=== PATIENT | female | born 1990 | race Two or more races ===

== ENCOUNTER 2019-07-26 08:35 | Emergency (ER) | payer OTHER ==
[2019-07-26 09:02] VITALS: BMI 27.4
--- NOTE | 2019-07-26 09:44 | PDOC ---
History of Present Illness - General Chief Complaint: Chest Pain Stated Complaint: CHEST PAIN,EAR PAIN Time Seen by Provider: 07/26/19 09:08 History Source: Patient Exam Limitations: No Limitations - History of Present Illness Initial Comments: 07/26/19 09:39 Pt is a 29 y/o female who presents to the ED with complaint of cough, fever and chest wall pain secondary to severe cough for the last 3 days. She states she initially had pain in her chest only with coughing but now the pain is constant and very tender to touch. She admits that her son has strep throat and is on antibiotics. She denies any arm pain, neck pain, jaw pain, radiating pain to her back. She denies any shortness of breath. She states her ears have been hurting her and she has a lot of congestion. She has not been taking anything for her symptoms. She has a history of anemia and denies any asthma history. The patient states that she is 19 wks gestation and is also having morning sickness which is not new since being sick. She denies any abdominal pain or vaginal bleeding. 07/26/19 10:37 Is this a multiple visit Asthma Patient?: No Past History - Past Medical History Allergies/Adverse Reactions: Allergies Allergy/AdvReac Type Severity Reaction Status Date / Time No Known Allergies Allergy Verified 07/26/19 08:47 Home Medications: Ambulatory Orders Acetaminophen [Tylenol] 650 mg PO DAILY PRN 07/26/19 Vit 93/Iron Fum/Folic [ Formula Tablet] 1 each PO DAILY Anemia: Yes CVA: No COPD: No CHF: No DVT: No - Reproductive History (#): 3 Para: 1 Cervical CA: No Dysfunctional Uterine Bleeding: No Ectopic : No Endometrial CA: No Polycystic Ovaries: No Therapeutic (s) & number: No Tubal Ligation: No Spontaneous : 1 - Immunization History Immunization Up to Date: Yes - Psycho Social/Smoking Cessation Hx Smoking History: Never smoked Hx Alcohol Use: No Drug/Substance Use Hx: No Review of Systems - Review of Systems Constitutional: Yes: Fever. No: Loss of Appetite, Night Sweats HEENTM: Yes: Ear Pain (b/l ), Throat Pain. No: Nose Congestion, Difficulty Swallowing Respiratory: Yes: Cough. No: Shortness of Breath, Wheezing Cardiac (ROS): Yes: Chest Pain (chest wall). No: Palpitations, Syncope, Chest Tightness ABD/GI: No: Diarrhea, Nausea, Vomiting, Abdominal cramping Musculoskeletal: Yes: Muscle Pain. No: Joint Pain, Muscle Weakness Integumentary: No: Rash Neurological: No: Headache *Physical Exam - Vital Signs Last Vital Signs Temp Pulse Resp BP Pulse Ox 98.5 F 91 H 17 106/67 97 07/26/19 08:44 07/26/19 08:44 07/26/19 08:44 07/26/19 08:44 07/26/19 09:30 - Physical Exam General Appearance: Yes: Nourished, Appropriately Dressed, Mild Distress HEENT: positive: EOMI, LINDY, Normal Voice, Pharynx Normal, Nasal Congestion, Hearing Grossly Normal, TM Bulging (b/l TM effusions without evidence of infection). negative: Muffled/Hoarse voice, Pharyngeal Erythema, Tonsillar Exudate, Tonsillar Erythema, Rhinorrhea, Sinus Tenderness, Hearing Decreased, TM Dull, TM Erythema Neck: positive: Supple. negative: Tender, Rigid, Decreased range of motion, Lymphadenopathy (R), Lymphadenopathy (L) Respiratory/Chest: positive: Chest Tender, Lungs Clear, Normal Breath Sounds, Other (Moderate anterior chest wall tenderness to palpation). negative: Respiratory Distress, Accessory Muscle Use, Crackles, Rhonchi, Wheezing Cardiovascular: positive: Regular Rhythm, Regular Rate, S1, S2 Gastrointestinal/Abdominal: positive: Normal Bowel Sounds, Soft. negative: Tender Musculoskeletal: positive: Normal Inspection Extremity: positive: Normal Capillary Refill Neurologic: positive: Fully Oriented, Alert, Normal Mood/Affect ED Treatment Course - RADIOLOGY Radiology Studies Ordered: Category Date Time Status CHEST PA & LAT [RAD] Stat Radiology 07/26/19 09:36 Ordered Medical Decision Making - Medical Decision Making 07/26/19 10:27 The patient has been made aware that her results of her rapid strep swab and her influenza swab were negative. The throat culture is still pending. The patient has been encouraged to increase her fluid in take and get plenty of rest. She should follow up with her primary doctor within 2 days for repeat evaluation. She should take Tylenol only for fever or bodyaches. She has been encouraged to return to the ED for any worsening symptoms. She understands and agrees with treatment and plan. Discharge - Discharge Information Problems reviewed: Yes Clinical Impression/Diagnosis: Cough in adult, Chest wall pain Upper respiratory infection Qualifiers: URI type: unspecified viral URI Qualified Code(s): J06.9 - Acute upper respiratory infection, unspecified Acute middle ear effusion Qualifiers: Laterality: bilateral Qualified Code(s): H65.193 - Other acute nonsuppurative otitis media, bilateral Condition: Stable Disposition: HOME - Follow up/Referral - Patient Discharge Instructions Patient Printed Discharge Instructions: Costochondritis, Common Cold Additional Instructions: Get plenty of rest and drink plenty of fluids. Since you are , decongestants are not suggested. You can take Tylenol for pain or fever. Return to the emergency department as needed for any worsening symptoms. You should follow up with your primary doctor within 1-2 days for repeat evaluation. - Post Discharge Activity Work/Back to School Note: Back to Work
[2019-07-26 10:58] VITALS: BP 110/75; PULSE 77; TEMP 98
--- NOTE | 2019-07-28 23:24 | EKG ---
Test Reason : Blood Pressure : / mmHG Vent. Rate : 078 BPM Atrial Rate : 078 BPM P-R Int : 134 ms QRS Dur : 080 ms QT Int : 394 ms P-R-T Axes : 028 029 035 degrees QTc Int : 449 ms NORMAL SINUS RHYTHM WITH SINUS ARRHYTHMIA NORMAL ECG NO PREVIOUS ECGS AVAILABLE Confirmed by JON CLARK MD ([id number]) on 07/28/2019 11:23:59 PM Referred By: Confirmed By:JON CLARK MD
== END 2019-07-26 10:55 | disposition home or self-care (01) ==
LOC: JERFT 08:35 → JER 08:35
DX: J06.9 Acute upper respiratory infection, unspecified (principal); B97.89 Other viral agents as the cause of diseases classified elsewhere; H65.193 Other acute nonsuppurative otitis media, bilateral
CPT/HCPCS: 87070; 87804; 87880; 93005; 93010; 99284-25

== ENCOUNTER 2019-08-30 19:01 | Emergency (ER) | payer OTHER ==
--- NOTE | 2019-08-30 19:11 | PDOC ---
Rapid Medical Evaluation Chief Complaint: Pain Time Seen by Provider: 08/30/19 19:03 Medical Evaluation: Allergies Allergy/AdvReac Type Severity Reaction Status Date / Time No Known Allergies Allergy Verified 07/26/19 08:47 08/30/19 19:06 I have performed a brief in-person evaluation of this patient. The patient presents with a chief complaint of:acute abd pain to mid abd yesterday. No trauma, no recent illness/ LMP 03/12 Grv3, para1, Ab1 Pertinent physical exam findings: tearful, holding gravid abdomen I have ordered the following: nothing The patient will proceed to the ED for further evaluation.
[2019-08-30 19:13] VITALS: BP 128/75; PULSE 95; TEMP 97.7; BMI 28.1
== END 2019-08-30 19:15 | disposition home or self-care (01) ==
LOC: JER 19:01
DX: O26.893 Other specified pregnancy related conditions, third trimester (principal); R10.30 Lower abdominal pain, unspecified; Z3A.28 28 weeks gestation of pregnancy
CPT/HCPCS: 99281-25